=== PATIENT | female | born 1960 | race Caucasian/White ===

== ENCOUNTER → 2022-02-03 | Outpatient (CLI) | payer BC, OTHER ==
[~2022-02-03] MED LIST: ALLO300 PO; BUME2 PO; INS70/30I SC; INSR10I SC; MAGNESIUM; METO5 PO; PIOG30 PO; POTCHL20ER PO; SIROLIMUS; SPIR50 PO
[2022-02-05 16:10] LABS: HPV 16 Negative (Negative); HPV 18 Negative (Negative); HPV OTHER HR TYPES Negative (Negative)
== END | disposition home or self-care (01) ==
LOC: LAB SHORT 15:32 → LAB 15:32
PROVIDERS: Advanced Practice Midwife
DX: Z01.419 Encounter for gynecological examination (general) (routine) without abnormal findings (principal)
CPT/HCPCS: 87624; G0123